=== PATIENT | female | born 1975 | race African-American/Black ===

== ENCOUNTER 2017-10-26 21:39 | Emergency (ER) | payer OTHER ==
[2017-10-26 22:43] LABS: ABSOLUTE BASOPHILS # (AUTO) 0.1 10^3/uL (0.0-0.2); ABSOLUTE EOSINOPHILS # (AUTO) 0.3 10^3/uL (0.0-0.6); ABSOLUTE LYMPHOCYTES (AUTO) 3.7 10^3/uL (0.5-4.7); ABSOLUTE MONOCYTES (AUTO) 0.6 10^3/uL (0.1-1.4); ABSOLUTE NEUT (AUTO) 5.8 10^3/uL (1.7-8.2); HEMATOCRIT 38.7 % (36.0-47.0); HEMOGLOBIN 13.4 g/dL (12.0-15.5); LYMPHOCYTES % (AUTO) 34.8 % (13-45); MEAN CORPUSCULAR HEMOGLOBIN 27.1 pg (27.0-33.4); MEAN CORPUSCULAR HGB CONC 34.5 g/dL (32.0-36.0); MEAN CORPUSCULAR VOLUME 79 fl (80-97); MONOCYTES % (AUTO) 5.9 % (3-13); PLATELET COUNT 306 10^3/uL (150-450); RED BLOOD COUNT 4.94 10^6/uL (3.72-5.28); RED CELL DISTRIBUTION WIDTH 15.1 % (11.5-14.0); SEGMENTED NEUTROPHILS % (AUTO) 55.3 % (42-78); TOTAL CELLS COUNTED % (AUTO) 100 %; WHITE BLOOD COUNT 10.5 10^3/uL (4.0-10.5)
[2017-10-26 22:45] LABS: APPEARANCE,URINE SLIGHTLY-CLOUDY; BILIRUBIN,URINE NEGATIVE (NEGATIVE); COLOR,URINE YELLOW; GLUCOSE, URINE NEGATIVE (NEGATIVE); KETONES,URINE NEGATIVE (NEGATIVE); LEUKOCYTE ESTERASE,URINE LARGE (NEGATIVE); NITRITE,URINE NEGATIVE (NEGATIVE); PROTEIN,URINE NEGATIVE (NEGATIVE)
[2017-10-26 22:52] LABS: ALANINE AMINOTRANSFERASE 90 U/L (9-52); ALBUMIN 4.1 g/dL (3.5-5.0); ALKALINE PHOSPHATASE 121 U/L (38-126); ANION GAP 10 (5-19); ASPARTATE AMINO TRANSFERASE 68 U/L (14-36); BILIRUBIN,DIRECT 0.3 mg/dL (0.0-0.4); BILIRUBIN,TOTAL 1.6 mg/dL (0.2-1.3); BLOOD UREA NITROGEN 8 mg/dL (7-20); CALCIUM 9.3 mg/dL (8.4-10.2); CARBON DIOXIDE 30 mmol/L (22-30); CHLORIDE 102 mmol/L (98-107); GLUCOSE 95 mg/dL (75-110); POTASSIUM 3.9 mmol/L (3.6-5.0); SODIUM 141.9 mmol/L (137-145)
--- NOTE | 2017-10-26 23:36 | ER Document Report ---
ED General - General Chief Complaint: Leg Swelling Stated Complaint: SWOLLEN LEGS Time Seen by Provider: 10/26/17 23:24 Notes: Patient is a 41-year-old female presents with leg swelling is been there for a few weeks. She does have a history of this previously. She denies any chronic medical problems. She denies any pain in her abdomen. On her chief complaint chart mentions that she has a headache however the patient says the headache was earlier today and currently she does not have a headache. She denies any recent surgeries. No cyst long road trips. Her edema is equal in both legs. She says her legs not really painful but it feels like "I feel like I am walking on pillows". No other complaints at this time. TRAVEL OUTSIDE OF THE [place] IN LAST 30 DAYS: No - Related Data Allergies/Adverse Reactions: No Known Allergies Allergy (Unverified 07/14/12 13:48) Past Medical History - Social History Smoking Status: Never Smoker Frequency of alcohol use: None Drug Abuse: None Family History: Reviewed & Not Pertinent Past Surgical History: Reports: Hx Tubal Ligation - Immunizations Hx Diphtheria, Pertussis, Tetanus Vaccination: Yes Review of Systems - Review of Systems Notes: My Normal Review Basic REVIEW OF SYSTEMS: CONSTITUTIONAL : Denies fever, chills, or sweats. Denies recent illness. CARDIOVASCULAR: Denies chest pain. RESPIRATORY: Denies cough, cold, or chest congestion. Denies shortness of breath, difficulty breathing, or wheezing. GASTROINTESTINAL: Denies abdominal pain. Denies nausea, vomiting, or diarrhea. MUSCULOSKELETAL: Bilateral leg swelling SKIN: Denies rash or skin lesions. NEUROLOGICAL: Denies sensory or motor loss. ALL OTHER SYSTEMS REVIEWED AND NEGATIVE. Physical Exam - Vital signs Vitals: Temp Pulse Resp BP Pulse Ox 97.7 F 89 18 132/73 H 100 10/26/17 22:00 10/26/17 22:00 10/26/17 22:00 10/26/17 22:00 10/26/17 22:00 - Notes Notes: General Appearance: Well nourished, alert, cooperative, no acute distress, no obvious discomfort. Vitals: reviewed, See vital signs table. Eyes: PERRL, EOMI, Conjuctiva clear Mouth: No decreasd moistur Extremities: strength 5/5 in all extremities, good pulses in all extremities, no swelling or tenderness in the extremities, patient has bilateral equal pitting edema in both lower extremities at this 2+. No significant pain to palpation of the feet. Edema goes from the feet up to the mid calf. Skin: warm, dry, appropriate color, no rash Neuro: speech clear, oriented x 3, normal affect, responds appropriately to questions. Course - Re-evaluation Re-evalutation: 10/27/17 06:27 Patient says at her job she sits in a chair all day. Patient is a bit overweight. SPECT most likely her leg edema is stasis gravity dependent edema. She does not have any significant pain in her legs. Her edema is equal in both extremities. I do not suspect DVT. She otherwise looks well. Her CMP does show mild elevation of liver enzymes. I did inform her of this and told her she is a follow-up with the primary care doctor for reevaluation and recheck of her liver enzymes in a week. Informed her that this could be related to diet and the fatty liver: However, still very poor and she has her liver enzymes rechecked to make sure that they are not worsening. I will place her on Lasix for 1 week and then talked her length about keep her legs elevated when in bed and also wearing compression hose when at work. Encouraged her return to ER if she has worsening leg swelling, pain, wrist, or she feels unwell. Patient agrees with plan will be discharged home. Dictation of this chart was performed using voice recognition software; therefore, there may be some unintended grammatical errors. - Vital Signs Vital signs: Temp Pulse Resp BP Pulse Ox 97.7 F 75 18 114/75 100 10/26/17 22:00 10/27/17 00:00 10/27/17 00:00 10/27/17 00:00 10/27/17 00:00 - Laboratory Result Diagrams: 10/26/17 22:23 10/26/17 22:23 Laboratory results interpreted by me: 10/26/17 10/26/17 10/26/17 22:23 22:23 22:23 MCV 79 L RDW 15.1 H Total Bilirubin 1.6 H AST 68 H ALT 90 H Urine Blood SMALL H Urine Urobilinogen 2.0 H Ur Leukocyte Esterase LARGE H Discharge - Discharge Clinical Impression: Leg edema, Liver enzyme elevation Condition: Good Disposition: HOME, SELF-CARE Instructions: Family Physicians / Practices Additional Instructions: Please buy compression stockings from the pharmacy. Please wear them at work or when up and walking throughout the day. These will help reduce amount of swelling and edema you have in your legs. Please keep your feet elevated on pillows when you sleep at nighttime. Your liver enzymes are slightly elevated. You are not a smoker or drinker of alcohol. You do not have any symptoms that would cause us to think is from your gallbladder. The most likely cause is probably fatty liver. Please try to follow a strict diet to try to lose weight. Losing weight will most likely help with this and also help with the swelling in your legs. It is very important you follow up with a doctor in 1-2 weeks for reevaluation and also for recheck of your liver enzymes to make sure that this is improving. Please return to the ER immediately if you develop any abdominal pain, any vomiting, any difficulty breathing or chest pain, or increased swelling in your legs. I will prescribe a water pill that you will take for 1 week. After 1 week you should not need to take this anymore as long as you continue to wear the compression stockings. Prescriptions: Furosemide [Lasix 20 mg Tablet] 20 mg PO QAM #7 tablet Referrals: QUINCY FIGUEROA MD [[facility]ED STAFF] - Follow up in 1 week
[2017-10-27] VITALS: BP 114/75
== END 2017-10-27 | disposition home or self-care (01) ==
LOC: ER 21:39
DX: R60.0 Localized edema (principal); R74.8 Abnormal levels of other serum enzymes
CPT/HCPCS: 36415; 80053; 81001; 85025; 99283

== ENCOUNTER 2019-06-14 05:31 | Day surgery (SDC) | payer OTHER ==
[2019-06-07 10:48] LABS: HEMATOCRIT 39.7 % (36.0-47.0); HEMOGLOBIN 13.8 g/dL (12.0-15.5); MEAN CORPUSCULAR HEMOGLOBIN 27.6 pg (27.0-33.4); MEAN CORPUSCULAR HGB CONC 34.7 g/dL (32.0-36.0); MEAN CORPUSCULAR VOLUME 80 fl (80-97); PLATELET COUNT 284 10^3/uL (150-450); RED BLOOD COUNT 4.99 10^6/uL (3.72-5.28); RED CELL DISTRIBUTION WIDTH 15.2 % (11.5-14.0); WHITE BLOOD COUNT 8.6 10^3/uL (4.0-10.5)
[2019-06-07 12:07] LABS: ANION GAP 11 (5-19); BLOOD UREA NITROGEN 11 mg/dL (7-20); CARBON DIOXIDE 23 mmol/L (22-30); CHLORIDE 106 mmol/L (98-107); GLUCOSE 77 mg/dL (75-110); POTASSIUM 4.1 mmol/L (3.6-5.0)
[~2019-06-14 05:31] MED LIST: CEFAZOLIN SODIUM 1 GM in DEXTROSE 5%-WATER 50 ML IV PRN; DEXTROSE 5%-LACTATED RINGERS 1,000 ML IV PRN; LACTATED RINGERS 1000 ML IV PRN; LIDOCAINE 0.5% INJ-PF (5 MG/ML) 50 ML SDV SUBCUT PRN
[2019-06-14] MEDS ORDERED: PROPOFOL INJ 200 MG/20 ML VIAL IV ONE ×2 (06:32→08:32)
[2019-06-14] MEDS ORDERED: DEXAMETHASONE SOD PHOSPHATE INJ 4 MG/1 ML VIAL ONE (06:32)
[2019-06-14] MEDS ORDERED: MIDAZOLAM 2 MG/2 ML INJ ONE (06:32)
[2019-06-14] MEDS ORDERED: ONDANSETRON HCL INJ/PF 4 MG/2 ML SDV ONE (06:32)
[2019-06-14] MEDS ORDERED: FENTANYL CITRATE INJ/PF 250 MCG/5 ML AMPULE ONE (06:32)
[2019-06-14] MEDS ORDERED: LIDOCAINE 1%/EPINEPHRINE INJ 20 ML VIAL ONE (07:14)
[2019-06-14] MEDS ORDERED: MICROFIBRILLAR COLLAGEN 1 GM PACK ONE (07:14)
[2019-06-14] MEDS ORDERED: LIDOCAINE 1%/EPINEPHRINE INJ 20 ML VIAL INJ ONE (07:59)
[2019-06-14] MEDS ORDERED: OXYCODONE-ACETAMINOPHEN 5-325 MG TABLET PO PRN (08:30)
--- NOTE | 2019-06-14 08:30 | Discharge Summary ---
Discharge Summary (SDC) - Discharge Final Diagnosis: Left breast mass and lymph node biopsy Date of Surgery: 06/14/19 Discharge Date: 06/14/19 Condition: Good Treatment or Instructions: [facility] [address] [place] [id number] Care Instructions Following Your Lumpectomy Activities: Resume normal activities when you feel comfortable. It is best to remain as active as possible to speed your recovery. It is common to experience some fatigue after surgery and you may find that short naps are helpful. Avoid strenuous activity such as weight lifting, tennis, etc at your surgical site for two weeks. Perform gentle arm exercises daily and do not favor your operative arm to due increased risk of mobility issues postoperatively. No driving for 7 days after surgery. Do not drive if you are taking pain medication other than Tylenol or Ibuprofen. No swimming, tub baths or soaking in a hot tub for 4 weeks. There are no dietary restrictions. Do not smoke as this impairs wound healing. Surgical Site care: You may shower in 48 hours. Leave the steri-strips (paper bandaids) in place. You may shower to include washing the wound with soap and water using your hands. Do not scrub the incision. Pat the area dry with a towel. You do not need to recover the wound although some patients find that they feel more comfortable using a light dressing for a few days to absorb any minimal drainage which may occur. Do not use heating pad or apply an ice pack to the operative site. You may apply deodorant if you are careful to avoid getting it on the wound itself. Medications: You may take Toradol 10mg one pill by mouth every six hours as needed for pain. Do not take additional NSAIDs with Toradol. You may take Tylenol. You may experience constipation after surgery while taking pain medications. If using a narcotic on a regular basis, take a stool softener such as Colace twice a day. It is helpful to stay hydrated by drinking lots of fluids. Walking is also helpful and is good exercise after surgery. If you need extra help, use Milk of Magnesia according to the directions on the package. Follow-up: Call our office at to make a follow-up appointment in 10-14 days. Your doctor will call to discuss the pathology report with you as soon as it is available. Concerns: Some bruising may occur and will go away over time. If you have a fever of 101.5 or greater, chills, redness at the incision site, excessive drainage from your wound or severe pain not relieved by pain medication, call your doctor. A physician is available 24 hours a day 7 days a week in addition to regular office hours. If problems arise after normal office hours please call the hospital at . Please call if you have any questions or concerns. Prescriptions: Ketorolac Tromethamine [Toradol 10 mg Tablet] 10 mg PO Q6HP PRN #20 tablet PRN Reason: Discharge Diet: As Tolerated Discharge Activity: Activity As Tolerated, Balance Activity w/Rest, Walk Frequently Report the Following to Your Physician Immediately: Increase in Pain, Fever over 101 Degrees, Unusual Bleeding, Redness, Swelling, Warmth, Increased Soreness, Drainage-Foul Smelling
--- NOTE | 2019-06-14 08:31 | Operative Report ---
Operative Report DATE OF SURGERY: 06/14/19 PREOPERATIVE DIAGNOSIS: 1. Left breast mass consistent with fibroadenoma, stat us post core biopsy and clip marker placement. 2. Lymphadenopathy left axilla. 3. Morbid obesity POSTOPERATIVE DIAGNOSIS: Same OPERATION: 1. Open excisional biopsy left upper outer quadrant fibroadenoma of the breast using ultrasound guidance. 2. Ultrasound-guided core biopsies x3 left axillary lymph node SURGEON: AMERICO RIDDLE 1ST SHOT HOLE SHOOTER: ALIYAH GLASER ANESTHESIA: LMAC TISSUE REMOVED OR ALTERED: Left breast mass; cores left axilla lymph node COMPLICATIONS: None ESTIMATED BLOOD LOSS: Scant INTRAOPERATIVE FINDINGS: See below PROCEDURE: The patient was seen in the preop holding area where the left breast was marked. She was then taken to the operating room where LMAC anesthesia was induced. Left arm was abducted, left breast and axilla were prepped and draped in sterile fashion. Surgical plan surgical timeout were conducted. We proceeded with the left breast lumpectomy first. Using ultrasound as a guide, and palpation, the upper outer quadrant left breast mass was readily identified. The skin was anesthetized 1% plain lidocaine. Approximately 3-1/2 cm incision was made with a knife, #10, and. Inferior skin flaps were raised. Using electrocautery, the underlying mass approximately 3-1/2 cm meter was excised. A 2-0 silk suture was used for traction mass. The mass was excised in its entirety. Of note it contained the clip marker placed preoperatively. The specimen was sent in formalin to pathology for permanent analysis. Hemostasis was excellent. The wound closed with 3-0 Vicryl, benzoin and Steri-Strips. Attention was now directed to the left axilla. Left arm was abducted further, Acuson gel placed in the left axilla, and using the variable frequency linear transducer, the axilla was scanned. Again patient had bulky adenopathy seen preoperatively on ultrasonography. These were large 2 and half to 3 cm lymph nodes, with preserved hilum, and moderately thickened cortex. With the ul trasound held in position, adjacent skin was needed as 1% plain lidocaine. A endy was made in the skin with a 15 blade, and using the INRAD disposable 14- gauge mammotome, records were obtained, one floated in the formalin container , and 2 specimens sank. There was no significant bleeding. No clip marker was deployed. Dressing applied to left axilla including benzoin and Steri-Strips. Patient tolerated the procedure well, taken recovery room in stable condition. The physician court assistant, Ms. Ruelas, provided assistance during this case by: Assisting with retracting tissue, instillation of local anesthesia and closure of skin incisions.
[2019-06-14 10:23] VITALS: BP 113/69
== END 2019-06-14 10:00 | disposition home or self-care (01) ==
LOC: OROUT 05:31
PROVIDERS: ATTEND Surgery
DX: N63.20 Unspecified lump in the left breast, unspecified quadrant (principal); R59.9 Enlarged lymph nodes, unspecified; D24.2 Benign neoplasm of left breast; E66.9 Obesity, unspecified
CPT/HCPCS: 36415; 85027; 81025; 80048; 88305 ×2; 00400; 19101; J2250; J0690; J1100; J3010; J3490; J2405; J7060; J2704; 400